=== PATIENT | female | born 1990 | race Hispanic/Latino ===

== ENCOUNTER 2022-11-26 13:36 | Emergency (ER) | payer SELFPAY ==
[2022-11-26 13:37] VITALS: BP 120/66; PULSE 55; RESP 16; TEMP 36.4; O2SAT 100
[2022-11-26 16:52] VITALS: BP 100/57; PULSE 58; RESP 17; O2SAT 100
--- NOTE | 2022-11-26 16:58 | ED.WOUNDLAC ---
HPI - Wound/Laceration General Chief Complaint: Wound/Laceration Stated Complaint: laceration to left 3rd digit Time Seen by Provider: 11/26/22 14:15 Source: patient Mode of arrival: ambulatory Limitations: no limitations History of Present Illness HPI narrative: This is a 32 year old female that presents to the ER for laceration to the left third finger sustained just prior to arrival. Reports accidental injury via a kitchen knife. She is not up-to-date on tetanus. Denies decreased range of motion or numbness. Related Data Allergies Allergy/AdvReac Type Severity Reaction Status Date / Time No Known Allergies Allergy Verified 11/26/22 13:48 Review of Systems Review of Systems: CONSTITUTIONAL: Denies fever SKIN: Reports laceration All systems reviewed & are unremarkable except as noted in HPI and below PMFSH Past Medical History Medical History (Updated 11/26/22 @ 17:21 by Margot Velarde PA-C) No active medical problems Social History Social History (Updated 11/26/22 @ 17:21 by Margot Velarde PA-C) Substance use: never Exam Narrative: GENERAL: Well-appearing, well-nourished, and in no acute distress. HEAD: Normocephalic, atraumatic. EYES: EOMI. EXTREMITIES: Normal range of motion. No edema. 1cm circular avulsion of skin of left third finger distal phalanx SKIN: Warm, dry, no rash. NEURO: No focal deficits. Alert and oriented x3. PSYCH: Normal mood and affect Course Vital Signs Vital signs: Vital Signs Temperature 97.6 F 11/26/22 13:37 Pulse Rate 55 L 11/26/22 13:37 Respiratory Rate 16 11/26/22 13:37 Blood Pressure 120/66 11/26/22 13:37 Pulse Oximetry 100 11/26/22 13:37 Oxygen Delivery Room Air 11/26/22 13:37 Temperature 97.6 F 11/26/22 13:37 Pulse Rate 58 L 11/26/22 16:52 Respiratory Rate 17 11/26/22 16:52 Blood Pressure 100/57 L 11/26/22 16:52 Pulse Oximetry 100 11/26/22 16:52 Oxygen Delivery Room Air 11/26/22 13:37 Procedures Laceration Laceration 1: Date: 11/26/22 Time: 17:18 Site: hand Side (If applicable): left Description: other (avulsion) Depth: simple, single layer Pre-repair: irrigated ====== Skin Level ====== ====== Subcutaneous Layer ====== ====== Muscle Layer ====== ====== Tendon Layer ====== Dressing: Patient's bleeding controlled with Surgicel MDM - Wound/Laceration MDM Narrative Medical decision making narrative: Patient presents to the emergency department for avulsion injury to skin of the finger. Wound was cleansed and bleeding controlled with Surgicel. She was updated on tetanus. Educated on further wound care. She is to follow-up with primary provider. She was given warnings to return to the ER Differential Diagnosis Differential diagnosis: Likely laceration, abrasion and avulsion of skin Critical Care Time Critical Care Time Critical Care Time: No Discharge Plan Discharge Clinical Impression: Avulsion of skin Patient Disposition: Home, Self-Care Condition: Stable Instructions: Skin Avulsion (ED) Additional Instructions: Return to the emergency department if you experience fever, redness or swelling of your wound, abnormal drainage from your wound, or any other symptoms that are concerning to you. Leave bottom layer of gauze on until it falls off. You may then clean the area with mild soap and water. You may change the top bandages daily Follow-up with your primary care doctor for wound check Prescriptions: New cephalexin 500 mg capsule 500 mg PO Q8H 5 Days Qty: 15 0RF Follow-up/Referrals: PHYSICIAN NOT ON STAFF,NONSTAFF [Primary Care Provider] -
[2022-11-26] MEDS: TETANUS,DIPHTHERIA,AC PERTUSSIS ADULT (0.5 ML) BOOSTRIX IM (17:03)
== END 2022-11-26 17:22 | disposition home or self-care (01) ==
PROVIDERS: Emergency Provider Physician Assistant
DX: S61.213A Laceration without foreign body of left middle finger without damage to nail, initial encounter (principal); Z23 Encounter for immunization; W26.0XXA Contact with knife, initial encounter
CPT/HCPCS: 90471; 90715; 99283